=== PATIENT | female | born 1975 | race Caucasian/White ===

== ENCOUNTER 2017-11-27 10:39 | Emergency (ER) | payer OTHER ==
[~2017-11-27] VITALS: Ht 170.2 cm; Wt 81.7 kg
[~2017-11-27 10:39] MED LIST: CELEXA10 MG; IRON325; NORCO 5-325 TA1 EACH PO; PHENTERMINE HCL15 MG
[2017-11-27] MEDS ORDERED: LEXAPRO5 MG PO (10:43)
[2017-11-27 11:06] LABS: ABSOLUTE BASOPHILS 0.1 thou/uL (0.0-0.2); ABSOLUTE EOSINOPHILS 0.2 thou/uL (0.0-0.7); ABSOLUTE MONOCYTES 0.6 thou/uL (0.0-1.2); ABSOLUTE NEUTROPHILS 5.9 thou/uL (1.6-8.1); BASOPHILS 0.8 %; EOSINOPHILS 1.6 %; HEMATOCRIT 38.2 % (37.0-47.0); HEMOGLOBIN 12.9 gm/dL (12.0-15.0); LYMPHOCYTES 30.4 %; MCH 27.9 pg (26.0-34.0); MCHC 33.7 g/dL (28.0-37.0); MCV 82.7 fL (80.0-100.0); MONOCYTES 6.1 %; MPV 7.5 fl. (7.2-11.1); NUCLEATED RBCS 0 /100WBC; PLATELET COUNT* 373 thou/uL (150-400); POLYS 61.1 %; RBC 4.63 mil/uL (4.20-5.00); RDW-CV 14.4 % (10.5-14.5); WBC 9.7 thou/uL (4.0-11.0)
[2017-11-27 11:17] LABS: ANION GAP 15 mmol/L (7-16); BUN 13 mg/dL (7-18); CALCIUM 8.3 mg/dL (8.5-10.1); CHLORIDE 104 mmol/L (98-107); CO2 19 mmol/L (21-32); CREATININE 0.9 mg/dL (0.6-1.3); GLUCOSE 132 mg/dL (70-99); SODIUM 138 mmol/L (136-145)
[2017-11-27 11:24] LABS: ALBUMIN 3.5 g/dL (3.4-5.0); ALKALINE PHOSPHATASE 58 U/L (46-116); LIPASE 174 U/L (73-393); SGOT 28 U/L (15-37); SGPT 20 U/L (30-65); TOTAL BILIRUBIN 0.6 mg/dL (<0.1-1.0); TROPONIN-I LEVEL <0.06 ng/mL (<0.06)
[2017-11-27 12:36] VITALS: BP 130/76
--- NOTE | 2017-11-27 17:29 | EKG ---
[place] [address] ELECTROCARDIOGRAM REPORT Name: WILMER AGUILARH REDDY [id number] Admission: 11/27/17 Attend Phys: Discharge: 11/27/17 Date of : 79 Report #: [id number] THIS REPORT FOR: //name// [facility] ED Test Date: 2017-11-27 Test Time: 11:15:32 Pat Name: WILMER AGUILAR Department: Room: Gender: F White Kid Buffer: [place] : 1975 Requested By: Siri Boss Order Number: [id number] MD: Alejandro Mejia Measurements Intervals [place] Rate: 69 P: MO: QRS: 71 QRSD: 113 T: 58 QT: 462 QTc: 495 Interpretive Statements Atrial fibrillation Borderline intraventricular conduction delay Borderline prolonged QT interval Electronically Signed On 11-27-2017 17:28:45 CDT by Alejandro Mejia [email or web address] <ELECTRONICALLY SIGNED> By: Alejandro Mejia MD, [facility] 11/27/17 1728 1115 1115 Alejandro Mejia MD, FACC /EPI
== END 2017-11-27 12:33 | disposition home or self-care (01) ==
LOC: M.ERS 10:39
PROVIDERS: Nurse Practitioner Family
DX: R42 Dizziness and giddiness (principal); F41.9 Anxiety disorder, unspecified

== ENCOUNTER 2019-05-22 19:34 | Emergency (ER) | payer OTHER ==
[~2019-05-22] VITALS: Ht 170.2 cm; Wt 88.5 kg
[~2019-05-22 19:34] MED LIST changes: +LEXAPRO5 MG PO
[2019-05-22] MEDS ORDERED: ANXIETY MEDICATION (19:51)
[2019-05-22 20:26] LABS: INFLUENZA A ANTIGEN Negative (Negative); INFLUENZA B ANTIGEN Negative (Negative)
[2019-05-22 20:33] LABS: HEMATOCRIT 40.1 % (37.0-47.0); HEMOGLOBIN 13.5 gm/dL (12.0-15.0); MCH 27.6 pg (26.0-34.0); MCHC 33.7 g/dL (28.0-37.0); MCV 81.8 fL (80.0-100.0); MPV 7.5 fl. (7.2-11.1); NUCLEATED RBCS 0 /100WBC; PLATELET COUNT* 352 thou/uL (150-400); RDW-CV 13.5 % (10.5-14.5); WBC 12.5 thou/uL (4.0-11.0)
[2019-05-22 20:44] LABS: CALCIUM 8.9 mg/dL (8.5-10.1); POTASSIUM 3.8 mmol/L (3.5-5.1)
[2019-05-22 20:48] LABS: TOTAL BILIRUBIN 0.6 mg/dL (<0.1-1.0); TOTAL PROTEIN 7.9 g/dL (6.4-8.2)
[2019-05-22 21:10] LABS: ABSOLUTE LYMPHOCYTES 0.6 thou/uL (0.8-5.3); ABSOLUTE MONOCYTES 0.3 thou/uL (0.0-1.2); ABSOLUTE NEUTROPHILS 11.6 thou/uL (1.6-8.1); PLATELET ESTIMATE ADEQUATE
[2019-05-22 21:44] LABS: URINE BILIRUBIN NEGATIVE (Negative); URINE BLOOD NEGATIVE (Negative); URINE CLARITY CLEAR; URINE COLOR YELLOW; URINE GLUCOSE-RANDOM NEGATIVE (Negative); URINE KETONES 2+ (Negative); URINE LEUKOCYTES NEGATIVE (Negative); URINE NITRITE NEGATIVE (Negative); URINE PROTEIN NEGATIVE (Negative); URINE SPECIFIC GRAVITY >= 1.030 (1.005-1.030); URINE UROBILINOGEN 0.2 E.U./dl (0.2-1.0)
[2019-05-22] MEDS ORDERED: ZOFRAN ODT4 MG PO (22:00)
[2019-05-22 22:20] VITALS: BP 117/53
== END 2019-05-22 22:20 | disposition home or self-care (01) ==
LOC: M.ERS 19:34
PROVIDERS: Physician Assistant
DX: K52.9 Noninfective gastroenteritis and colitis, unspecified (principal); E86.0 Dehydration; F41.9 Anxiety disorder, unspecified